=== PATIENT | male | born 1990 | race Caucasian/White ===

== ENCOUNTER 2022-10-03 14:39 | Emergency (ER) | payer MEDICAID ==
[~2022-10-03] VITALS: Ht 162.6 cm; Wt 61.0 kg
[2022-10-03 15:03] VITALS: TEMP 98.6; O2SAT 96
[2022-10-03 15:25] VITALS: BP 151/94; PULSE 64; RESP 17
[2022-10-03] MEDS ORDERED: KETOROLAC 60MG/2ML VIAL IM STA (15:25)
[2022-10-03 15:38] LABS: BASOPHILS % 0.2 % (0.0-2.0); EOSINOPHILS % 2.3 % (0.0-5.0); HEMATOCRIT. 43.1 % (42.0-52.0); HEMOGLOBIN. 14.6 g/dL (14.0-18.0); LYMPHOCYTES % 31.8 % (20.0-50.0); MEAN CORPUSCULAR HEMOGLOBIN 30.8 pg (28.0-32.0); MEAN CORPUSCULAR VOLUME 90.6 fL (80.0-94.0); MEAN PLATELET VOLUME 8.2 fl (7.4-10.4); MONOCYTES % 8.4 % (2.0-8.0); NEUTROPHILS % 57.3 % (40.0-76.0); PLATELET 298 x1000/uL (130-400); RED BLOOD CELL COUNT 4.75 mill/uL (4.7-6.1); RED CELL DISTRIBUTION WIDTH 13.4 % (11.6-14.6)
[2022-10-03 15:55] LABS: CHLORIDE 105 mEq/L (98-107); INDEX HEMOLYSI 1 (1-3); INDEX ICTERIC 1 (1-4); INDEX LIPEMIC 1 (1-3); POTASSIUM 4.4 mEq/L (3.5-5.1); SODIUM 138 mEq/L (136-145)
[2022-10-03 16:05] LABS: ALANINE AMINOTRANSFERASE 149 IU/L (13-61); ALBUMIN 3.4 g/dL (3.4-5.0); ASPARTATE AMINOTRANSFERASE 84 IU/L (15-37); BILIRUBIN TOTAL 0.5 mg/dL (0.1-1.0); CALCIUM 8.8 mg/dL (8.5-10.1); CARBON DIOXIDE 29 mEq/L (21-32); CREATININE 0.9 mg/dL (0.6-1.3); GLUCOSE 113 mg/dL (70-105); PROTEIN TOTAL 6.9 g/dL (6.0-8.3); UREA NITROGEN BLOOD 16 mg/dL (7-21)
[2022-10-03] MEDS ORDERED: MORPHINE SULFATE 4 MG/ML CPJ (NOT FOR IM USE) IV STA (17:59)
[2022-10-03] MEDS ORDERED: ONDANSETRON HCL 4MG/2ML INJ IV STA (17:59)
[2022-10-03] MEDS ORDERED: SODIUM CHLORIDE 0.9% 1,000 ML IV ONE (18:00)
== END 2022-10-03 19:49 | disposition home or self-care (01) ==
LOC: ER 14:39 → CANBEDREQ 10-04 22:09
DX: N13.9 Obstructive and reflux uropathy, unspecified (principal); R10.9 Unspecified abdominal pain; Z87.19 Personal history of other diseases of the digestive system
CPT/HCPCS: 99285; 74176; 80053; 85025; 36415; 96372; J1885; J7030